=== PATIENT | female | born 1960 | race African-American/Black ===

== ENCOUNTER 2023-04-02 12:59 | Emergency (ER) | payer OTHER ==
[~2023-04-02] VITALS: Ht 172.7 cm; Wt 125.0 kg
[2023-04-02 13:13] VITALS: TEMP 99.8
[2023-04-02 14:01] LABS: COVID AG,FIA SOURCE NASAL SWAB
[2023-04-02 14:10] LABS: SARS-COV2 (COVID) ANTIGEN,FIA Negative (Negative)
[2023-04-02 14:11] LABS: INFLUENZA TYPE A NEGATIVE FOR TYPE A (NEGATIVE); INFLUENZA TYPE B NEGATIVE FOR TYPE B (NEGATIVE)
[2023-04-02 14:16] LABS: RAPID GROUP A STREP POSITIVE (NEGATIVE)
[2023-04-02] MEDS ORDERED: PENI500T2 PO (14:43)
[2023-04-02] MEDS ORDERED: IBUP-1506 PO (14:43)
[2023-04-02] MEDS: PENICILLIN V POTASSIUM 500 MG TABLET PO ONE (14:53)
[2023-04-02] MEDS: IBUPROFEN 600 MG TABLET PO ONE (14:53)
[2023-04-02] MEDS ORDERED: BENZ-227 PO (14:58)
[2023-04-02 14:59] VITALS: BP 141/87; PULSE 98; RESP 18
[2023-04-02] MEDS: GuaiFENesin/D-METHORPHAN/PHENYLEPH 5 ML LIQUID ORAL.SYG PO ONE (15:07)
== END 2023-04-02 15:38 | disposition home or self-care (01) ==
LOC: EMS 13:43
DX: J02.0 Streptococcal pharyngitis (principal); Z90.49 Acquired absence of other specified parts of digestive tract; Z20.822 Contact with and (suspected) exposure to COVID-19
CPT/HCPCS: 87430; 87804; 99284; Z7502; Z7610